=== PATIENT | male | born 1955 ===

== ENCOUNTER 2016-09-06 08:11 | Emergency (ER) | payer OTHER, BC ==
[2016-09-06 08:27] VITALS: BMI 29.0
--- NOTE | 2016-09-06 09:39 | C.PDOC ---
History Of Present Illness 61 y/o male presents to the ED with complains of left ankle pain. Pt states he was moving something at work this morning and felt a pop to posterior left ankle and now has pain, radiates to calf. Admits to previous fracture to same ankle in 2013. Denies weakness, numbness or any other complaints. Time Seen by Provider: 09/06/16 08:56 Chief Complaint (Nursing): Lower Extremity Problem/Injury History Per: Patient History/Exam Limitations: no limitations Onset/Duration Of Symptoms: Hrs Current Symptoms Are (Timing): Still Present Severity: Moderate Recent travel outside of the [place]: No Past Medical History Reviewed: Historical Data, Nursing Documentation, Vital Signs Vital Signs: Last Vital Signs Temp 98.5 F 09/06/16 11:23 Pulse 84 09/06/16 11:23 Resp 18 09/06/16 11:23 BP 158/94 H 09/06/16 11:23 Pulse Ox 97 09/06/16 11:23 - [facility] Procedures APPLICATION OF SPLINT (12/09/13) Family History: States: Unknown Family Hx - Social History Hx Tobacco Use: No Hx Alcohol Use: No Hx Substance Use: No - Immunization History Hx Tetanus Toxoid Vaccination: Yes Hx Influenza Vaccination: No Hx Pneumococcal Vaccination: No Review Of Systems Except As Marked, All Systems Reviewed And Found Negative. Musculoskeletal: Positive for: Other (left ankle and calf pain) Neurological: Negative for: Weakness, Numbness Physical Exam - Physical Exam Appears: Non-toxic, No Acute Distress Skin: Warm, Dry, No Rash Head: Atraumatic, Normacephalic Extremity: Normal ROM, Tenderness (left achilles tendon), Calf Tenderness (left) , No Deformity, Other (left ankle: pos Moy test, gap felt just above the heel ) Neurological/Psych: Oriented x3, Normal Speech, Normal Motor, Normal Sensation ED Course And Treatment O2 Sat by Pulse Oximetry: 99 (room air) Pulse Ox Interpretation: Normal - Other Rad Ankle xray X-Ray: Viewed By Me, Read By Radiologist Interpretation: Accession No. : [id number]. Patient Name / ID : REINALDO KIM / [id number]. Exam Date : 09/06/2016 09:13:02 ( Approved ). Study Comment : Sex / Age : M / 61Y. Creator : SUGRUE, RAJNI. Dictator : Tan Leon MD. Partition Making Machine Operator : Irish Moss Bleacher : Tan Leon MD. Approver2 : Report Date : 09/06/2016 10:01:42. My Comment : . PROCEDURE: Left Ankle Radiographs. And her. HISTORY: snap feeling in the posterior low leg. COMPARISON: 2013. FINDINGS: BONES: No acute fracture. There is ossification arising from the medial posterior distal fibula likely in the interosseous membrane but extending posteriorly in the lateral projection as well. This is likely the result of the old distal fibular fracture evident on the prior examination of 01/2014. There is no acute fracture. JOINTS: Normal. No osteoarthritis. Ankle mortise maintained. Talar dome intact. SOFT TISSUES: Normal. OTHER FINDINGS: None. IMPRESSION: No acute fracture. Ossification of medial and posterior distal fibula likely extending into interosseous membrane, as a result of old distal fibular fracture. Progress Note: LLE venous duplex is negative for DVT. Patient was treated with posterior short leg splint in plantarflexion that was applied by CP and checked by me. Ctutches and instructions by PT. Patient will f/u with PMD and Orthopedist. Medical Decision Making Medical Decision Making: Plan: * XR left ankle * venous doppler left lower extremity Disposition - Disposition Referrals: Luciana Sanchez MD [Staff Provider] - Disposition: HOME/ ROUTINE Disposition Time: 11:07 Condition: STABLE Additional Instructions: Follow up with PMD and Orthopedist within 1-2 days. Return to ED if feel worse. Prescriptions: Ibuprofen [Motrin Tab] 600 mg PO Q8 #30 tab Instructions: Achilles Tendon Rupture (ED) Forms: Work Excuse - Clinical Impression Clinical Impression: Achilles tendon injury - PA / SPREAD CUTTER / Resident Statement MD/DO has reviewed & agrees with the documentation as recorded. - Scribe Statement The provider has reviewed the documentation as recorded by the Scribpina Berumen All medical record entries made by the Scribe were at my direction and personally dictated by me. I have reviewed the chart and agree that the record accurately reflects my personal performance of the history, physical exam, medical decision making, and the department course for this patient. I have also personally directed, reviewed, and agree with the discharge instructions and disposition.
--- NOTE | 2016-09-06 11:04 | RAD ---
PROCEDURE: Left Ankle Radiographs. And her HISTORY: snap feeling in the posterior low leg COMPARISON: 12/09/2013 FINDINGS: BONES: No acute fracture. There is ossification arising from the medial posterior distal fibula likely in the interosseous membrane but extending posteriorly in the lateral projection as well. This is likely the result of the old distal fibular fracture evident on the prior examination of 12/09/2013. There is no acute fracture. JOINTS: Normal. No osteoarthritis. Ankle mortise maintained. Talar dome intact SOFT TISSUES: Normal. OTHER FINDINGS: None. IMPRESSION: No acute fracture. Ossification of medial and posterior distal fibula likely extending into interosseous membrane, as a result of old distal fibular fracture.
[2016-09-06 11:35] VITALS: BP 158/94; PULSE 84; RESP 18; TEMP 98.5
[2016-09-06 14:13] VITALS: O2SAT 99
--- NOTE | 2016-09-06 21:21 | VASCLAB ---
PROCEDURE: Left Lower Extremity Venous Duplex Exam. HISTORY: pain posterior low leg pain PRIORS: None. TECHNIQUE: Left common femoral, femoral, popliteal and posterior tibial, peroneal and great saphenous veins were evaluated. Flow was assessed with color Doppler, compressibility, assessment of phasic flow and augmentation response. Report prepared by HARIS Shaikh, RVT FINDINGS: LEFT: 1. Common Femoral Vein: 1.1. Compressibility - Fully compressible: Thrombus - None : Flow - Phasic: Augmentation -Normal: Reflux - None. 2. Femoral Vein: 2.1. Compressibility - Fully compressible: Thrombus - None: Flow - Phasic: Augmentation -Normal: Reflux - None. 3. Popliteal Vein: 3.1. Compressibility - Fully compressible: Thrombus - None: Flow - Phasic: Augmentation -Normal: Reflux - None. 4. Posterior Tibial Vein: 4.1. Compressibility - Fully compressible: Thrombus - None: Flow - Phasic: Augmentation -Normal: Reflux - None. 5. Peroneal Vein: 5.1. Compressibility - Fully compressible: Thrombus - None: Flow - Phasic: Augmentation -Normal: Reflux - None. 6. Great Saphenous Vein: 6.1. Compressibility - Fully compressible: Thrombus - None: Flow - Phasic: Augmentation - Normal: Reflux - None. OTHER FINDINGS: IMPRESSION: No evidence of deep or superficial vein thrombosis of the left lower extremity with excellent venous flow. Normal valve function noted of the left side. Normal venous flow noted in the right common femoral vein.
== END 2016-09-06 12:24 | disposition home or self-care (01) ==
LOC: C.ER 08:11
DX: S86.002A Unspecified injury of left Achilles tendon, initial encounter (principal); X58.XXXA Exposure to other specified factors, initial encounter; Y93.89 Activity, other specified; Y92.89 Other specified places as the place of occurrence of the external cause; Y99.0 Civilian activity done for income or pay
CPT/HCPCS: 29515; 73610; 93971; 97116; 97161; 99285; G8978; G8979; G8980